=== PATIENT | female | born 1980 | race Caucasian/White ===

== ENCOUNTER 2021-02-25 08:48 | Outpatient (CLI) | payer BC | END 2021-02-25 08:49 | disposition home or self-care (01) | LOC: CSHULT 08:48 | PROVIDERS: ATTEND Otolaryngology Plastic Surgery within the Head & Neck | DX: E04.1 Nontoxic single thyroid nodule (principal); E04.2 Nontoxic multinodular goiter | CPT/HCPCS: 76536 ==

== ENCOUNTER 2022-04-02 15:38 | Outpatient (CLI) | payer BC | END 2022-04-02 15:39 | disposition home or self-care (01) | LOC: CSHULT 15:38 | PROVIDERS: ATTEND Otolaryngology Plastic Surgery within the Head & Neck | DX: E04.1 Nontoxic single thyroid nodule (principal); E04.2 Nontoxic multinodular goiter | CPT/HCPCS: 76536 ==